=== PATIENT | male | born 1960 | race Caucasian/White ===

== ENCOUNTER 2018-10-29 02:00 | Emergency (ER) | payer SELFPAY ==
[~2018-10-29] VITALS: Ht 177.8 cm; Wt 95.3 kg
[2018-10-29 02:05] VITALS: Ht 177.8 cm; Wt 95.3 kg
[2018-10-29] MEDS ORDERED: LISINOPRIL5 MG PO (02:07)
[2018-10-29 02:33] VITALS: BP 168/95
== END 2018-10-29 02:33 | disposition home or self-care (01) ==
LOC: D.ER 02:00
DX: S01.01XA Laceration without foreign body of scalp, initial encounter (principal); Y04.2XXA Assault by strike against or bumped into by another person, initial encounter; Y93.89 Activity, other specified; Y92.019 Unspecified place in single-family (private) house as the place of occurrence of the external cause

== ENCOUNTER 2018-11-06 09:16 | Emergency (ER) | payer SELFPAY ==
[~2018-11-06] VITALS: Ht 177.8 cm; Wt 90.9 kg
[~2018-11-06 09:16] MED LIST: LISINOPRIL5 MG PO
[2018-11-06 09:19] VITALS: Ht 177.8 cm; Wt 90.9 kg
[2018-11-06 09:45] VITALS: BP 179/83
== END 2018-11-06 09:46 | disposition home or self-care (01) ==
LOC: D.ER 09:16
DX: S01.91XD Laceration without foreign body of unspecified part of head, subsequent encounter (principal); X58.XXXA Exposure to other specified factors, initial encounter; Z48.02 Encounter for removal of sutures